=== PATIENT | male | born 1960 | race Caucasian/White ===

== ENCOUNTER 2020-02-12 09:00 | Outpatient (RCR) | payer BC, SELFPAY ==
[2020-01-16 15:38] VITALS: PULSE 75
--- NOTE | 2020-02-18 09:20 | PCCPR ---
Absent without call Les has been absent last 2 scheduled days. Message left to call us back and update his plan to return.
--- NOTE | 2020-02-18 10:58 | PCCPR ---
Discharging-Les called and stated he is back to work and it is not going to work out for him to return to cardiac rehab. Will discharge patient.
== END 2020-02-18 11:02 | disposition home or self-care (01) ==
LOC: ANHCPREHAB 09:00
PROVIDERS: PCP Internal Medicine
DX: Z95.2 Presence of prosthetic heart valve (principal)
CPT/HCPCS: 93798